=== PATIENT | female | born 1970 | race Caucasian/White ===

== ENCOUNTER 2016-09-04 06:15 | Emergency (ER) | payer BC, OTHER ==
[~2016-09-04] VITALS: Ht 160 cm; Wt 96.0 kg
[2016-09-04 06:26] VITALS: Ht 160 cm; Wt 96.0 kg
[2016-09-04] MEDS ORDERED: SOD CHLORIDE 0.9% 1,000 ML IV STA (06:43)
[2016-09-04] MEDS ORDERED: ONDANSETRON 4 MG INJ IV STA (06:43)
[2016-09-04] MEDS ORDERED: morphine 4 MG/ML VIAL IV STA (06:43)
--- NOTE | 2016-09-04 06:48 | ERD ---
ER Documentation Chief Complaint Date/Time DATE: 09/04/16 TIME: 06:47 Chief Complaint lower back pain x 3 days ,vomiting since 0300 am with epigastric pain HPI 46-year-old female comes in with lower back pain on the right side with epigastric pain and nausea vomiting since 3 AM. Patient reports multiple episodes of nonbloody nonbilious emesis, sharp pain in the epigastrium, she also has right-sided lower back pain. Patient states that she has not tried anything for this yet. She has not had any fevers, chills. Denies diarrhea. No hematemesis. Patient has a history of cholecystectomy ROS All systems reviewed and are negative except as per history of present illness. 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 The patient appears in no acute distress. HEENT: Head is normocephalic, atraumatic. No scleral icterus. Neck: Supple. Nontender. Lungs: Clear to auscultation. Normal air movement. Heart: Regular rate and rhythm. S1 and S2 are normal. No murmurs, gallops, or rubs. Abdomen: Soft, epigastrium is tender nondistended. Bowel sounds are normoactive. Scars from previous lap ana seen. Extremities: No clubbing or cyanosis. Normal pulses. Moving extremities x 4. No weakness. Neurologic: Alert and oriented 3. No focal deficits. Skin: Normal turgor. No rash or lesions. Result Diagram: 09/04/1665409/04/1655 Results 24 hrs Laboratory Tests Test 09/04/16 06:47 09/04/16 06:55 Urine Color YELLOW Urine Clarity CLEAR Urine pH 6.0 Urine Specific [place] 1.025 Urine Ketones NEGATIVE Urine Nitrite NEGATIVE Urine Bilirubin NEGATIVE Urine Urobilinogen 0.2 E.U./dL Urine Leukocyte Esterase NEGATIVE Urine Hemoglobin NEGATIVE Urine Glucose NEGATIVE% Urine Total Protein NEGATIVE White Blood Count 10.710^3/ul Red Blood Count 4.7510^6/ul Hemoglobin 13.9g/dl Hematocrit 40.2% Mean Corpuscular Volume 84.6fl Mean Corpuscular Hemoglobin 29.3pg Mean Corpuscular Hemoglobin Concent 34.6g/dl Red Cell Distribution Width 12.0% Platelet Count 32066^3/UL Mean Platelet Volume 9.1fl Neutrophils % 84.7% Lymphocytes % 9.1% Monocytes % 4.9% Eosinophils % 0.7% Basophils % 0.1% Nucleated Red Blood Cells % 0.0/100WBC Neutrophils # 9.110^3/ul Lymphocytes # 1.010^3/ul Monocytes # 0.510^3/ul Eosinophils # 0.110^3/ul Basophils # 0.010^3/ul Nucleated Red Blood Cells # 0.010^3/ul Sodium Level 139mmol/L Potassium Level 4.1mmol/L Chloride Level 106mmol/L Carbon Dioxide Level 27mmol/L Anion Gap 10 Blood Urea Nitrogen 17mg/dl Creatinine 0.51mg/dl Glucose Level 122mg/dl Calcium Level 9.3mg/dl Total Bilirubin 0.2mg/dl Direct Bilirubin 0.00mg/dl Indirect Bilirubin 0.2mg/dl Aspartate Amino Transf (AST/SGOT) 80IU/L Alanine Aminotransferase (ALT/SGPT) 114IU/L Alkaline Phosphatase 146IU/L Total Protein 7.4g/dl Albumin 4.7g/dl Globulin 2.70g/dl Albumin/Globulin Ratio 1.74 Lipase 33U/L Current Medications Medications (Trade) Dose Ordered Sig/Win Route PRN Reason Start Time Stop Time Status Last Admin Dose Admin Sodium Chloride (NS) 1,000 ml @ 1,000 mls/hr Q1H STAT IV 09/04/16 06:43 09/04/16 07:42 DC 09/04/16 06:56 Morphine Sulfate (morphine) 4 mg ONCE STAT IV 09/04/16 06:43 09/04/16 06:44 DC 09/04/16 06:56 Ondansetron HCl (Zofran Inj) 4 mg ONCE STAT IV 09/04/16 06:43 09/04/16 06:44 DC 09/04/16 06:56 Famotidine (Pepcid) 20 mg ONCE ONCE PO 09/04/16 08:00 09/04/16 08:01 DC 09/04/16 07:57 PROCEDURE: CT Abdomen and pelvis without contrast. CLINICAL INDICATION: Epigastric pain, nausea, vomiting TECHNIQUE: CT scan of the abdomen and pelvis without contrast was performed on a multidetector high-resolution CT scan. . Coronal and sagittal reformatted images were obtained from the axial source images. Standard CT scan of the abdomen pelvis without contrast protocols were performed. The total exam CTDI equals 22.19 mGy and the total exam DLP equals 1316.33 mGy- cm. One or more of the following dose reduction techniques were used: - Automated exposure control. - Adjustment of the mA and/or kV according to patient size. Use of iterative reconstruction technique. COMPARISON: None. FINDINGS: Status post cholecystectomy without evidence of biliary ductal dilation. The kidneys are normal in size without calcified renal calculi, intra renal masses or obstructive uropathy. Urinary bladder is contracted but otherwise unremarkable. The liver spleen pancreas and adrenal glands are unremarkable. There is a 0.9 cm accessory spleen along the medial spleen. The stomach, small bowel, large bowel and appendix are unremarkable. Findings suggestive of previous hysterectomy. No evidence of intra-abdominal free air, free fluid, abscesses or lymphadenopathy. The aorta is unremarkable. The lung bases are unremarkable. There is degenerative changes lower thoracic and lumbar spine. There are no acute osseous findings/osteolytic/osteoblastic lesions. IMPRESSION: 1. Status post cholecystectomy without biliary ductal dilation. 2. Findings suggestive of previous hysterectomy. 3. No evidence of gastrointestinal disease. Negative for intra-abdominal free air fluid abscesses or lymphadenopathy. RPTAT:AAJJ B Augustin Physician Date Time Electronically viewed and signed by Physician Grayson on 09/04/2016 07:25 BM/ Procedures/MDM ED course: Patient an IV line established, labs and urine were obtained. She was given morphine 4 mg and Zofran 4 mg IV as well as a fluid bolus of normal saline 1 L. Patient reports that she continues to have pain in the epigastrium, she was given Pepcid 20 mg by mouth, as well as water was able to tolerate by mouth. She reports improvement of pain with this medication as well. The patient's abdominal pain was reexamined. Patient was sitting comfortably with improved pain. Patient was not in any distress. MDM: 46-year-old female comes with epigastric pain nausea vomiting that started earlier this morning. Patient abdominal examination shows tenderness in epigastrium without any tenderness of the right upper quadrant. There is no elevated white blood cell count, fever, evidence of pancreatitis, CT abdomen pelvis shows normal ducts in the biliary tree, and that she is status post cholecystectomy. She denies any recent surgeries, I doubt biliary leakage, or obstructive process including choledocholithiasis. This is likely gastritis, she responded well to initial morphine, and Pepcid in the emergency department. Additionally other differentials considered include UTI, pyelonephritis, kidney stones, appendicitis, bowel obstruction, ovarian torsion among others. She is medicated here, had improvement of pain was able to tolerate by mouth and will be discharged home. Departure Diagnosis: Primary Impression: Abdominal pain Additional Impression: Nausea and vomiting Condition: ADELAIDA Briscoe PA-C September 04, 2016 06:48
[2016-09-04 07:13] LABS: ADD SCAN DIFF NO
[2016-09-04 07:15] LABS: ADD UMIC NO; URINE BILIRUBIN (Dip) NEGATIVE (NEGATIVE); URINE BLOOD (Dip) NEGATIVE (NEGATIVE); URINE COLOR YELLOW (YELLOW); URINE GLUCOSE (Dip) NEGATIVE (NEGATIVE); URINE KETONES (Dip) NEGATIVE (NEGATIVE); URINE LEUKOCYTE ESTERASE (Dip) NEGATIVE (NEGATIVE); URINE NITRITE (Dip) NEGATIVE (NEGATIVE); URINE TOTAL PROTEIN (Dip) NEGATIVE (NEGATIVE); URINE UROBILINOGEN (Dip) 0.2 E.U./dL (0.1-1.0)
[2016-09-04 07:18] LABS: BASOPHILS % 0.1 % (0.0-2.0); EOSINOPHILS # 0.1 10^3/ul (0.0-0.5); EOSINOPHILS % 0.7 % (0.0-7.0); HEMATOCRIT 40.2 % (37.0-47.0); HEMOGLOBIN 13.9 g/dl (12.0-16.0); LYMPHOCYTES % 9.1 % (15.0-51.0); MEAN CORPUSCULAR HEMOGLOBIN 29.3 pg (29.0-33.0); MEAN CORPUSCULAR HGB CONC 34.6 g/dl (32.0-37.0); MEAN CORPUSCULAR VOLUME 84.6 fl (82.0-101.0); MEAN PLATELET VOLUME 9.1 fl (7.4-10.4); MONOCYTE # 0.5 10^3/ul (0.3-0.9); MONOCYTES % 4.9 % (0.0-11.0); NEUTROPHIL # 9.1 10^3/ul (1.6-7.5); NEUTROPHILS % 84.7 % (39.0-77.0); PLATELET COUNT 253 10^3/UL (140-415); RED BLOOD COUNT 4.75 10^6/ul (4.20-5.40); WHITE BLOOD COUNT 10.7 10^3/ul (4.8-10.8)
--- NOTE | 2016-09-04 07:26 | RADRPT ---
PROCEDURE: CT Abdomen and pelvis without contrast. CLINICAL INDICATION: Epigastric pain, nausea, vomiting TECHNIQUE: CT scan of the abdomen and pelvis without contrast was performed on a multidetector hig h-resolution CT scan. . Coronal and sagittal reformatted images were obtained from the axial [facility] e images. Standard CT scan of the abdomen pelvis without contrast protocols were performed. The total exam CTDI equals 22.19 mGy and the total exam DLP equals 1316.33 mGy-cm. One or more of the following dose reduction techniques were used: - Automated exposure control. - Adjustment of the mA and/or kV according to patient size. Use of iterative reconstruction technique. COMPARISON: None. FINDINGS: Status post cholecystectomy without evidence of biliary ductal dilation. The kidneys are normal in size without calcified renal calculi, intra renal masses or obstructive ur opathy. Urinary bladder is contracted but otherwise unremarkable. The liver spleen pancreas and adrenal glands are unremarkable. There is a 0.9 cm accessory spleen a long the medial spleen. The stomach, small bowel, large bowel and appendix are unremarkable. Findings suggestive of previous hysterectomy. No evidence of intra-abdominal free air, free fluid, abscesses or lymphadenopathy. The aorta is unremarkable. The lung bases are unremarkable. There is degenerative changes lower th oracic and lumbar spine. There are no acute osseous findings/osteolytic/osteoblastic lesions. IMPRESSION: 1. Status post cholecystectomy without biliary ductal dilation. 2. Findings suggestive of previous hysterectomy. 3. No evidence of gastrointestinal disease. Negative for intra-abdominal free air fluid abscesses or lymphadenopathy. RPTAT:AAJJ Physician Grayson Date Time Electronically viewed and signed by Physician Grayson on 09/04/2016 07:25 BM/
[2016-09-04 07:33] LABS: ALBUMIN 4.7 g/dl (3.3-4.9); ALBUMIN/GLOBULIN RATIO 1.74; BILIRUBIN,INDIRECT 0.2 mg/dl (0-1.1); BILIRUBIN,TOTAL 0.2 mg/dl (0.2-1.3); CALCIUM 9.3 mg/dl (8.4-10.2); CREATININE 0.51 mg/dl (0.44-1.00); POTASSIUM 4.1 mmol/L (3.5-5.1); TOTAL PROTEIN 7.4 g/dl (6.1-8.1)
[2016-09-04] MEDS ORDERED: FAMOTIDINE 20 MG TAB PO ONE (08:00)
[2016-09-04] MEDS ORDERED: ONDA4TAB14 PO (08:10)
[2016-09-04] MEDS ORDERED: RANI150T9 PO (08:10)
[2016-09-04 08:49] VITALS: BP 122/65; PULSE 70; RESP 16; TEMP 98.6
== END 2016-09-04 08:43 | disposition left against medical advice (07) ==
LOC: FTE 06:15
DX: R10.13 Epigastric pain (principal); R11.2 Nausea with vomiting, unspecified; R10.2 Pelvic and perineal pain; Z85.42 Personal history of malignant neoplasm of other parts of uterus
CPT/HCPCS: 36415; 74176; 80053; 81003; 83690; 85025; 96374; 96375; J2270; J2405; J7030; Z7502; Z7610